=== PATIENT | female | born 1980 | race Caucasian/White ===

== ENCOUNTER 2023-09-08 07:00 | Emergency (ER) | payer OTHER ==
[~2023-09-08] VITALS: Wt 74.8 kg
[~2023-09-08 07:00] MED LIST: CLARITIN10 MG PO; TOBRADEX 0.1%-0.5 ML OPH
[2023-09-08] MEDS ORDERED: Cyclobenzaprine Hydrochlorid 10 MG TAB PO ONE (08:05)
[2023-09-08] MEDS ORDERED: ACETAMINOPHEN 325 MG TAB PO ONE (08:05)
[2023-09-08] MEDS ORDERED: Ketorolac Tromethamine 60 MG/2 ML VIAL IM ONE (08:05)
[2023-09-08 08:18] LABS: BASO % 0.4 % (0.0-1.0); EOS # 0.3 10*3/uL (0.0-0.4); HEMATOCRIT 39.3 % (37.0-47.0); LYMPH # 2.3 10*3/uL (1.3-4.4); LYMPH % 20.6 % (27.0-41.0); MEAN CELL VOLUME 93.3 fl (81.0-99.0); MEAN CORPUSCULAR HGB 31.4 pg (27.0-31.0); MEAN CORPUSCULAR HGB CONC 33.6 g/dl (33.0-37.0); MEAN PLATELET VOLUME 9.8 fl (9.6-12.3); MONO # 0.9 10*3/uL (0.1-1.0); MONO % 8.1 % (3.0-9.0); NEUT # 7.4 10*3/uL (2.3-7.9); NEUT % 67.6 % (47.0-73.0); PLATELET COUNT AUTOMATED 245 10*3/uL (130-400); RED BLOOD COUNT 4.21 10*6/uL (4.10-5.10); RED CELL DISTRI WIDTH 11.9 % (0-14.5)
[2023-09-08 08:42] LABS: ALKALINE PHOSPHATASE 56 U/L (46-116); BUN 7 mg/dl (9-23); CHLORIDE 108 mmol/L (98-107); POTASSIUM 3.9 mmol/L (3.4-5.1); SGPT/ALT 9 U/L (5-49); TOTAL PROTEIN 6.9 gm/dL (6.0-8.0)
[2023-09-08 08:48] LABS: BETA-HCG, QUANT < 3.0 mIU/mL (3-10)
[2023-09-08] MEDS ORDERED: CYCLOBENZAPRINE10 MG PO (09:50)
[2023-09-08] MEDS ORDERED: methylPREDNISolone sod succ 125 MG VIAL IM ONE (09:50)
[2023-09-08] MEDS ORDERED: PREDNISONE50 MG PO (09:50)
== END 2023-09-08 10:15 | disposition home or self-care (01) ==
LOC: ED 07:00
PROVIDERS: Emergency Medicine
DX: S16.1XXA Strain of muscle, fascia and tendon at neck level, initial encounter (principal); R10.2 Pelvic and perineal pain; Z98.890 Other specified postprocedural states; X58.XXXA Exposure to other specified factors, initial encounter; Y93.89 Activity, other specified; Y92.89 Other specified places as the place of occurrence of the external cause; Y99.8 Other external cause status